=== PATIENT | male | born 1955 | race Caucasian/White ===

== ENCOUNTER 2019-04-10 07:46 | Day surgery (SDC) | payer MEDICAID ==
[~2019-04-10 07:46] MED LIST: Acetaminophen TAB* 325 MG PO PRN
[2019-04-10] MEDS ORDERED: Midazolam* 1 MG/ML 5 ML VIAL (5 MG) ONE ×2 (09:19)
[2019-04-10] MEDS ORDERED: Cyclopentolate 1% OPTH.SOL* 2 ML BTL ONE ×2 (10:05)
[2019-04-10] MEDS ORDERED: acetaZOLAMIDE TAB* 250 MG ONE ×2 (10:05)
[2019-04-10] MEDS ORDERED: Ketorolac 0.5% OPHTH (NF) 0.5 % 5 ML BTL ONE ×2 (10:05)
[2019-04-10] MEDS ORDERED: Povidone Iodine 5% OPTH* 30 ML BTL ONE ×2 (10:05)
[2019-04-10] MEDS ORDERED: Lidocaine 1% MPF ** 5 ML VIAL ONE ×2 (10:05)
[2019-04-10] MEDS ORDERED: Phenylephrine OPHTH SOL 2.5%* 2 ML ONE ×2 (10:05)
[2019-04-10] MEDS ORDERED: Tetracaine 0.5% OPTH.SOL 4 ML* 1 DROP BTL ONE ×2 (10:05)
[2019-04-10] MEDS ORDERED: Neomycin/Polymy/Dex OPHTH.OIN* 3.5 GM ONE ×2 (10:05)
[2019-04-10] MEDS ORDERED: Tropicamide 1% OPTH.SOL* BTL ONE ×2 (10:05)
[2019-04-10 10:31] VITALS: BP 121/79
--- NOTE | 2019-04-10 11:52 | OP ---
DATE OF OPERATION: 04/10/2019 - [facility] DATE OF : 1955. SURGEON: Bebeto Dyer MD ANESTHESIA: Monitored anesthesia care. PREOPERATIVE DIAGNOSIS: Cataract, right eye. POSTOPERATIVE DIAGNOSIS: Cataract, right eye. OPERATIVE PROCEDURE: Extracapsular cataract extraction of the right eye with intraocular lens implant. IMPLANT: SN60WF 19.5 diopter lens to the right eye. COMPLICATIONS: None. DESCRIPTION OF PROCEDURE: The patient was given phenylephrine 2.5 % and cyclopentolate 1% eye drops to the operative eye in the preoperative area. The patient was taken to the operating room where a time-out was taken to identify the correct patient, site, and side of surgery. The patient's right eye was prepped and draped in the usual sterile fashion with 5% Betadine. A second time- out was taken to verify the correct patient, side, and site of surgery, as well as the correct lens implant. A lid speculum was placed to the right eye. A 1mm paracentesis blade was used to make a clear corneal incision. Preservative-free 1% lidocaine was injected into the anterior chamber. DisCoVisc was then injected into the anterior chamber. A 2.75 mm keratome blade was used to make a triplanar incision. A cystotome initiated a capsulorrhexis, which was completed with Utrata forceps in a continuous and curvilinear manner. Hydrodissection of the lens was performed with BSS on a cannula. The lens could be spun in a capsular bag. The phacoemulsification handpiece was used with a divide-and- conquer technique to remove the nucleus. The I/A handpiece then removed the residual cortical lens material. DisCoVisc was injected to inflate the capsular bag. The planned SN60WF 19.5 diopter lens was injected into the capsular bag. The residual DisCoVisc was removed from the eye with the I/A handpiece. The corneal incisions were hydrated and no leaks occurred at physiologic pressure around 20 mmHg per palpation. The lid speculum was removed and drapes were removed. Maxitrol ointment was placed to the surface of the operative eye. An adhesive patch and shield was then placed on the operative eye. The patient was taken to the postoperative area in stable condition. [id number]/[facility] #: [id number] [facility]
== END 2019-04-10 10:13 | disposition home or self-care (01) ==
LOC: OREAST 07:46
PROVIDERS: ATTEND Student in an Organized Health Care Education/Training Program
DX: H25.11 Age-related nuclear cataract, right eye (principal); I10 Essential (primary) hypertension; F17.210 Nicotine dependence, cigarettes, uncomplicated; J44.9 Chronic obstructive pulmonary disease, unspecified; Z85.828 Personal history of other malignant neoplasm of skin
CPT/HCPCS: A9270-GY; J2250; V2632

== ENCOUNTER 2019-04-17 09:15 | Day surgery (SDC) | payer MEDICAID ==
[~2019-04-17 09:15] MED LIST changes: +Midazolam* 1 MG/ML 2 ML VIAL (2 MG) ONE
[2019-04-17] MEDS ORDERED: Midazolam* 1 MG/ML 2 ML VIAL (2 MG) ONE ×2 (10:01)
[2019-04-17] MEDS ORDERED: fentaNYL* 50 MCG/ML 2 ML VIAL (100 MCG VIAL) ONE ×2 (10:01)
[2019-04-17 11:07] VITALS: BP 118/78
[2019-04-17] MEDS ORDERED: Cyclopentolate 1% OPTH.SOL* 2 ML BTL ONE ×2 (11:07)
[2019-04-17] MEDS ORDERED: Phenylephrine OPHTH SOL 2.5%* 2 ML ONE ×2 (11:07)
[2019-04-17] MEDS ORDERED: Neomycin/Polymy/Dex OPHTH.OIN* 3.5 GM ONE ×2 (11:07)
[2019-04-17] MEDS ORDERED: Povidone Iodine 5% OPTH* 30 ML BTL ONE ×2 (11:07)
[2019-04-17] MEDS ORDERED: acetaZOLAMIDE TAB* 250 MG ONE (11:07)
[2019-04-17] MEDS ORDERED: Lidocaine 1% MPF ** 5 ML VIAL ONE ×2 (11:07)
[2019-04-17] MEDS ORDERED: Tropicamide 1% OPTH.SOL* BTL ONE ×2 (11:08)
[2019-04-17] MEDS ORDERED: Tetracaine 0.5% OPTH.SOL 4 ML* 1 DROP BTL ONE ×2 (11:08)
[2019-04-17] MEDS ORDERED: Ketorolac 0.5% OPHTH (NF) 0.5 % 5 ML BTL ONE ×2 (11:08)
--- NOTE | 2019-04-17 14:28 | OP ---
DATE OF OPERATION: 04/17/2019 - [facility] DATE OF : 1955. SURGEON: Bebeto Dyer MD ANESTHESIA: Monitored anesthesia care. PREOPERATIVE DIAGNOSIS: Cataract, left eye. POSTOPERATIVE DIAGNOSIS: Cataract, left eye. OPERATIVE PROCEDURE: Extracapsular cataract extraction of the left eye with intraocular lens implant. IMPLANT: SN60WF 19.5 diopter lens to the left eye. COMPLICATIONS: None. DESCRIPTION OF PROCEDURE: The patient was given phenylephrine 2.5 % and cyclopentolate 1% eye drops to the operative eye in the preoperative area. The patient was taken to the operating room where a time-out was taken to identify the correct patient, site, and side of surgery. The patient's left eye was prepped and draped in the usual sterile fashion with 5% Betadine. A second time- out was taken to verify the correct patient, side, and site of surgery, as well as the correct lens implant. A lid speculum was placed to the left eye. A 1mm paracentesis blade was used to make a clear corneal incision. Preservative-free 1% lidocaine was injected into the anterior chamber. DisCoVisc was then injected into the anterior chamber. A 2.75 mm keratome blade was used to make a triplanar incision. A cystotome initiated a capsulorrhexis, which was completed with Utrata forceps in a continuous and curvilinear manner. Hydrodissection of the lens was performed with BSS on a cannula. The lens could be spun in a capsular bag. The phacoemulsification handpiece was used with a divide-and- conquer technique to remove the nucleus. The I/A handpiece then removed the residual cortical lens material. DisCoVisc was injected to inflate the capsular bag. The planned SN60WF 19.5 diopter lens was injected into the capsular bag. The residual DisCoVisc was removed from the eye with the I/A handpiece. The corneal incisions were hydrated and no leaks occurred at physiologic pressure around 20 mmHg per palpation. The lid speculum was removed and drapes were removed. Maxitrol ointment was placed to the surface of the operative eye. An adhesive patch and shield was then placed on the operative eye. The patient was taken to the postoperative area in stable condition. [id number]/[facility] #: [id number] [facility] [place]
[2019-04-17] MEDS ORDERED: Buffered Lidocaine 1% SYRIN* 1 ML/SYRINGE INTRADERM ONE (16:57)
== END 2019-04-17 11:20 | disposition home or self-care (01) ==
LOC: OREAST 09:15
PROVIDERS: ATTEND Student in an Organized Health Care Education/Training Program
DX: H25.12 Age-related nuclear cataract, left eye (principal); F17.210 Nicotine dependence, cigarettes, uncomplicated; I10 Essential (primary) hypertension; Z85.820 Personal history of malignant melanoma of skin; J44.9 Chronic obstructive pulmonary disease, unspecified
CPT/HCPCS: A9270-GY; J2250; J3010; V2632

== ENCOUNTER 2023-08-24 06:05 | Inpatient (IN) ==
[~2023-08-24 06:05] MED LIST changes: -Acetaminophen TAB* 325 MG PO PRN; +Ertapenem 1 GM in NS 0.9% 50 ML BAG IVPB SCH; -Midazolam* 1 MG/ML 2 ML VIAL (2 MG) ONE; +NS 0.45% 1000 ml BAG 1,000 ML IV SCH; +Naloxone 0.4 mg VIAL 0.4 mg/ml 1 ml VIAL IV PRN; +Ondansetron 4 mg VIAL 2 MG/ML 2 ml VIAL IV PRN; +fentaNYL 100 mcg/2 ml 50 MCG/ML VIAL IV PRN
[2023-08-24] MEDS: Buffered Lidocaine 1% SYRIN 1 ml INTRADERM ONE (06:49)
[2023-08-24] MEDS: Lactated Ringers 1000 ml BAG 1,000 ML IV SCH ×2 (06:50→14:13)
[2023-08-24 06:54] LABS: Rapid COVID-19 Molecular Undetected (Undetected)
[2023-08-24] MEDS ORDERED: Rocuronium 50 mg VIAL 10 mg/ml 5 ml VIAL (50 mg) ONE ×3 (06:59→09:44)
[2023-08-24] MEDS ORDERED: Lidocaine 2% PF 5 ML VIAL ONE (06:59)
[2023-08-24] MEDS ORDERED: Dexamethasone IV 4 MG/ML VIAL 1 ml VIAL ONE (06:59)
[2023-08-24] MEDS ORDERED: Midazolam 2 mg/2 ml VIAL 1 mg/ml 2 ml VIAL (2 mg) ONE (06:59)
[2023-08-24] MEDS ORDERED: fentaNYL 250 mcg/5 ml 50 MCG/ML 5 ml VIAL (250 MCG) ONE (06:59)
[2023-08-24] MEDS ORDERED: Propofol 10 MG/ML 20 ML BTL ONE (06:59)
[2023-08-24] MEDS ORDERED: Ondansetron 4 mg VIAL 2 MG/ML 2 ml VIAL ONE (06:59)
[2023-08-24] MEDS ORDERED: Bupivacaine 0.25% EPI 200,000 30 ML SDV ONE (07:06)
[2023-08-24] MEDS ORDERED: Acetaminophen IV 1 GM/100ML 1,000 MG/100 ML BAG IV ONE (10:29)
[2023-08-24] MEDS ORDERED: Ondansetron 4 mg VIAL 2 MG/ML 2 ml VIAL IV PRN (11:55)
[2023-08-24] MEDS: Nicotine PATCH 21 MG/24 HR PATCH TRANSDERM SCH (13:59)
[2023-08-24] MEDS ORDERED: LORazepam 2 mg VIAL 1 ml IV PUSH SCH (14:00)
[2023-08-24] MEDS: Thiamine 100 MG/ML 2 ml VIAL (200 mg) IM ONE (15:32)
[2023-08-24] MEDS: Acetaminophen IV 1 GM/100ML 1,000 MG/100 ML BAG IV ONE (16:56)
[2023-08-24] MEDS: LORazepam 2 mg VIAL 1 ml IV SCH (16:57)
[2023-08-25 06:24] LABS: ABS Lymphocytes 1.2 10^3/uL (1.0-4.8); ABS Monocytes 0.7 10^3/uL (0.0-1.1); ABS Neutrophils 5.1 10^3/uL (1.5-7.6); Eosinophil % 0.2 %; Hematocrit 32.8 % (38-53); Hemoglobin 11.2 g/dL (13.2-16.3); Mean Corpuscular Hemoglobin 33.1 pg (27-33); Mean Corpuscular Hgb Conc 34.3 g/dL (31-36); Mean Corpuscular Volume 96.6 fL (80-97); Mean Platelet Volume 8.9 fL (7.5-11.2); Platelet Count 150 10^3/uL (150-450); Red Cell Distribution Width 12.8 % (12-17)
[2023-08-25 06:56] LABS: Calcium 8.3 mg/dL (8.6-10.3); Creatinine, Serum 0.76 mg/dL (0.67-1.17); Potassium 4.3 mmol/L (3.5-5.0); eGFR CKD-EPI 98.5 (>60)
[2023-08-25] MEDS: Multivitamins/Minerals TAB PO SCH (07:44)
[2023-08-26 09:33] LABS: Hematocrit 35.1 % (38-53); Hemoglobin 12.1 g/dL (13.2-16.3)
[2023-08-26 13:47] VITALS: BP 149/93
== END 2023-08-26 14:43 | disposition home or self-care (01) | DRG 331 ==
LOC: AA 06:05 → EDSTATUS 07:30 → SSU 13:02
PROVIDERS: ADMIT Surgery; ATTEND Surgery

== ENCOUNTER 2023-12-27 06:32 | Observation (INO) ==
[~2023-12-27 06:32] MED LIST changes: +Ampicillin ADVAN 2 GM in NS 0.9% 100 ML 100 ML IVPB ONE; -Ertapenem 1 GM in NS 0.9% 50 ML BAG IVPB SCH; +GENTAMICIN ADULT IVPB ONE; -NS 0.45% 1000 ml BAG 1,000 ML IV SCH; +NS 0.9% IVPB ONE; -Ondansetron 4 mg VIAL 2 MG/ML 2 ml VIAL IV PRN
[2023-12-27] MEDS ORDERED: Propofol 10 MG/ML 20 ML BTL ONE (07:06)
[2023-12-27] MEDS ORDERED: Dexamethasone IV 4 MG/ML VIAL 1 ml VIAL ONE (07:06)
[2023-12-27] MEDS ORDERED: Lidocaine 2% PF 5 ML VIAL ONE (07:06)
[2023-12-27] MEDS ORDERED: fentaNYL 100 mcg/2 ml 50 MCG/ML VIAL ONE ×2 (07:06→09:08)
[2023-12-27] MEDS ORDERED: Ondansetron 4 mg VIAL 2 MG/ML 2 ml VIAL ONE (07:06)
[2023-12-27] MEDS ORDERED: Midazolam 2 mg/2 ml VIAL 1 mg/ml 2 ml VIAL (2 mg) ONE (07:06)
[2023-12-27 07:13] LABS: Rapid COVID-19 Molecular Undetected (Undetected)
[2023-12-27] MEDS ORDERED: Ondansetron 4 mg VIAL 2 MG/ML 2 ml VIAL IV PRN (07:30)
[2023-12-27] MEDS ORDERED: Phenylephrine 40 mcg/mL 10mL (400mcg) SYRINGE ONE (09:00)
[2023-12-27] MEDS ORDERED: Furosemide 20 mg/2 ml IV VIAL ONE (09:23)
[2023-12-27] MEDS: Buffered Lidocaine 1% SYRIN 1 ml INTRADERM ONE (12:39)
[2023-12-27] MEDS: Ampicillin ADVAN 2 GM in NS 0.9% 100 ML 100 ML IVPB ONE (12:40)
[2023-12-27] MEDS: Lactated Ringers 1000 ml BAG 1,000 ML IV SCH (12:40)
[2023-12-27] MEDS: GENTAMICIN ADULT IVPB ONE (12:40)
[2023-12-27] MEDS: NS 0.9% IVPB ONE (12:40)
[2023-12-27] MEDS: Magnesium Hydroxide LIQ 30 ML UDC PO SCH (12:43)
[2023-12-27] MEDS: Neomycin/Polym/Bacit TOP OINT 15 GM TOPICAL SCH (12:43)
[2023-12-27] MEDS: Nicotine PATCH 21 MG/24 HR PATCH TRANSDERM SCH (13:00)
[2023-12-27] MEDS: NS 0.9% 1000 ml BAG 1,000 ML IV SCH (13:00)
[2023-12-27] MEDS: oxyCODONE/Acetamin 5/325 mg TAB PO SCH (13:02)
[2023-12-28 09:52] VITALS: BP 136/101
== END 2023-12-28 11:15 | disposition home or self-care (01) ==
LOC: OR 06:32 → SSU 06:32
PROVIDERS: ADMIT Urology; ATTEND Urology